=== PATIENT | female | born 1995 | race Caucasian/White ===

== ENCOUNTER 2022-02-05 04:08 | Inpatient (IN) | payer BC ==
[~2022-02-05 04:08] MED LIST: BUTORPHANOL 1 MG/ML INJ IV PRN; CARBOPROST TROME 250 MCG/ML IM PRN; METHYLERGONOVINE 0.2MG/ML AMP IM PRN; OXYTOCIN/LR 20 UNIT/1,000 ML BAG IV SCH; PROMETHAZINE INJ 25 MG/ML AMP IM PRN; Ringers Lactate 1,000 ML IV SCH
[2022-02-05] MEDS: Ringers Lactate 1,000 ML IV PRN ×3 (04:55→10:27)
[2022-02-05 05:21] LABS: Absolute Lymphocytes (CBC) 2.7 K/uL (0.7-4.9); Lymphocytes % 25.8 % (15.3-44.8); MCV 92.1 fL (80-100); MPV 9.1 fL (7.6-11.3); RBC Red Blood Cell Count 4.01 M/uL (3.86-4.86)
[2022-02-05 05:45] LABS: Urine Appearance Clear (Clear); Urine Bilirubin Negative (Negative); Urine Blood Negative (Negative); Urine Color Yellow (Yellow); Urine Glucose Negative (Negative); Urine Protein Negative (Negative); Urine Specific Gravity 1.015 (1.005-1.030); Urine Urobilinogen 0.2 mg/dL (0.2-1.0)
[2022-02-05 05:55] VITALS: BMI 28.0
[2022-02-05 06:43] LABS: Urine Bacteria 20-50 /HPF (<20); Urine RBC <5 /HPF (NONE SEEN)
[2022-02-05] MEDS ORDERED: ROPIVACAINE HCL 0.2% 20ML AMP IV ONE (09:22)
[2022-02-05] MEDS ORDERED: FENTANYL CITR 100 MCG/2 ML IV ONE (09:22)
[2022-02-05] MEDS ORDERED: FENTANYL/BUPIVACAINE/NS/PF 0 MCG/0 ML BAG EP ONE (09:47)
[2022-02-05] MEDS ORDERED: ROPIVACAINE HCL 100 ML EP ONE ×2 (09:49→11:00)
--- NOTE | 2022-02-05 10:50 | PREOPHP ---
Date of Admission: 02/05/2022 History Of Present Illness: A 27-year-old, 2, para 1, 39 weeks 3 days, for induction. Pros and cons thoroughly discussed prior to admission. Family History: Father with thyroid cancer, maternal grandfather with lymphoma. Past Medical History: No serious illnesses. Past Surgical History: She has had tonsillectomy and wisdom teeth removed. Allergies: SHE IS ALLERGIC TO SULFA. Social History: She does not smoke. Physical Examination: HEENT: Clear. Pupils equal, round, reactive to light and accommodation. Conjunctivae well perfused . No oral, lingual, or buccal lesions. Chest and Lungs: Clear. Heart: Without murmurs, thrills, heaves, or rubs. Breasts: Without masses on previous visits. Abdomen: Term size. Extremities: Clear without edema, cyanosis, or clubbing. Assessment And Plan: The patient is 2.5, almost 3 cm, 60% effaced, vertex, -1 station, rupture of me mbranes, clear fluid. FHTs normal, reactive. The patient is Rh negative, immune to Rubella. Negati ve strep. Anticipate better progress in the next couple of hours. The patient will be requesting epidural anesthesia. Had forceps with the first delivery, which we will t ry to avoid at this time. MOO/THAI Voice ID: [id number]
[2022-02-05] MEDS ORDERED: LIDOCAINE 1% 20 ML MDV ONE (11:04)
[2022-02-05] MEDS ORDERED: DOCUSATE NA/SENNA CONC 1 TAB PO PRN (11:38)
[2022-02-05] MEDS ORDERED: ACETAMINOPHEN 500 MG TAB PO PRN (11:38)
[2022-02-05] MEDS ORDERED: Oxycodone HCl/Acetaminophen 1 TAB TAB PO PRN ×2 (11:38)
[2022-02-05] MEDS ORDERED: DIPHENHYDRAMINE 25 MG TAB/CAP PO PRN (11:38)
[2022-02-05] MEDS ORDERED: BISACODYL 10 MG RECTAL SUPP RC PRN (11:38)
[2022-02-05] MEDS ORDERED: OXYTOCIN/LR 20 UNIT/1,000 ML BAG IV SCH (12:00)
[2022-02-05] MEDS: IBUPROFEN 600 MG TAB PO PRN ×2 (15:12→23:39)
--- NOTE | 2022-02-05 23:59 | OP ---
Surgeon: Evangelist Sanchez MD Procedure In Detail: A 27-year-old 2, para 1, 39 weeks and 3 to 4 days, 2.5 cm this morning. Rupture of membranes, clear fluid. Patient requested and received epidural anesthesia at approxima tely 3.5 to 4 cm. Second stage of about 20 minutes. Spontaneous vaginal delivery of a 9-pound 1-oun ce male , Apgars of 8 and 9. Second-degree laceration repaired with 2-0 chromic. Zuly lin of the placenta was inspected and noted be intact and normal. 300 cc blood loss. Rh negative. RhoGAM pending. Tolerated all procedures well. Final Diagnoses: Term intrauterine . Labor induction. Vaginal delivery. RhoGAM pending. MOO/THAI Voice ID: [id number] Report ID: [id number]
--- NOTE | 2022-02-06 07:03 | DS ---
Hospital Course: A 27-year-old, 2, para 1, at approximately 39 weeks and 4 days at the time of delivery. Delivered a 9-pound 1-ounce male , Apgars 8 and 9. Midline second-degree lacerat ion, repaired with 2-0 chromic. Schultze delivery of the placenta. Uterus contracted down well. Es timated blood loss 300 cc or less. Had epidural anesthesia, which gave good effect during the labor. ; afebrile, ambulating, voiding. Lochia is normal. She will be dismissed later today to report back to my office in 6 weeks for followup to report any temperature elevation of 100 degrees or greater, severe pain, heavy bleeding, or any other type of abnormalities. She is Rh negative, is being qualified for RhoGAM, strep negative. Rubella immune. She has had a Tdap immunization. She h as no post epidural problems. She requests no analgesics on dismissal. Final Diagnoses: Term intrauterine , vaginal delivery, RhoGAM pending. MOO/THAI Voice ID: [id number] Report ID: [id number]
[2022-02-06] MEDS: IBUPROFEN 600 MG TAB PO PRN (10:59)
[2022-02-06 18:19] VITALS: BP 112/80; TEMP 98.6
[2022-02-06 23:59] LABS: RPR (Rapid Plasma Reagin) NON-REACT (NON-REACT)
== END 2022-02-06 18:30 | disposition home or self-care (01) | DRG 807 ==
LOC: 2ND-WC 04:08
PROVIDERS: ADMIT Specialist; ATTEND Specialist
PROC: 10E0XZZ Delivery of Products of Conception, External Approach (ICD-10-PCS; principal; 2022-02-05)
PROC: 0KQM0ZZ Repair Perineum Muscle, Open Approach (ICD-10-PCS; 2022-02-05)
PROC: 10907ZC Drainage of Amniotic Fluid, Therapeutic from Products of Conception, Via Natural or Artificial Opening (ICD-10-PCS; 2022-02-05)
PROC: 3E033VJ Introduction of Other Hormone into Peripheral Vein, Percutaneous Approach (ICD-10-PCS; 2022-02-05)
DX: O70.1 Second degree perineal laceration during delivery (principal); Z37.0 Single live birth; O26.893 Other specified pregnancy related conditions, third trimester; Z3A.39 39 weeks gestation of pregnancy; Z67.41 Type O blood, Rh negative
CPT/HCPCS: 36415; 81003; 81015; 85025; 86592; 86901; 87086; 87088; J2210; J2590; J2795; J3010; U0003